=== PATIENT | male | born 1995 | race Caucasian/White ===

== ENCOUNTER 2018-05-21 18:27 | Emergency (ER) | payer MEDICAID | END 2018-05-21 22:39 | disposition home or self-care (01) | LOC: FTE 18:27 | DX: S89.91XA Unspecified injury of right lower leg, initial encounter (principal); X58.XXXA Exposure to other specified factors, initial encounter; Y92.322 Soccer field as the place of occurrence of the external cause | CPT/HCPCS: 73562; 99283-25 ==